=== PATIENT | female | born 2000 | race Caucasian/White ===

== ENCOUNTER 2023-01-05 15:28 | Emergency (ER) | payer BC, SELFPAY ==
[2023-01-05 15:40] VITALS: BP 143/83; PULSE 75; RESP 16; TEMP 36.9; O2SAT 98; BMI 22.6
[2023-01-05 15:58] LABS: Appearance Urine Slightly Cloudy (Clear); Bilirubin Urine Negative (Negative); Blood Urine Negative (Negative); Color Urine Yellow (Yellow); Glucose Urine Negative (Negative); Ketones Urine Negative (Negative); Leukocyte Esterase Urine Trace (Negative); Nitrite Urine Negative (Negative); Protein Urine Negative (Negative); Specific Gravity Urine 1.025 (1.000-1.030); Urobilinogen Urine 0.2 (0.2-1.0)
--- NOTE | 2023-01-05 16:01 | ED_ITS ---
HPI - General Adult General Time Seen by Provider: 16:48 Date Seen: 01/05/23 Chief complaint: Back Injury/Pain Stated complaint: Sharp lower back, side and abdominal pain-R sided Time Seen by Provider: 01/05/23 15:49 Source: patient and RN notes reviewed Mode of arrival: ambulatory Limitations: no limitations History of Present Illness HPI narrative: This 22-year-old female is coming in with low back pain that has morphed into right sided lower abdominal pain. Symptoms started around 11:00 a.m. yesterday. She had a busy day and was at the [employer]. She took some Midol and heating pad last night and this morning again, did not help. She has had a history of ovarian cysts, became tearful talking about this as she states they tried to poke her 12 times with an IV. She will taken injectable pain medicine but really does not want an IV, is okay if we attempt to get blood. She is on a triphasic oral contraceptive, has not missed any doses. She notes no urinary symptoms, no change in bowel habits. She did feel little nausea when the pain was severe last night, otherwise no vomiting. She has had no abdominal surgeries. Related Data Allergies Allergy/AdvReac Type Severity Reaction Status Date / Time amoxicillin Allergy Severe Rash Verified 01/05/23 15:44 Review of Systems Status of ROS: Reports: 6 or more systems reviewed and unremarkable except as noted in History and below Exam Const: Vital Signs, click to edit/add: Vital Signs - 24 hr 01/05/23 15:40 Temperature 98.5 F Pulse Rate [Right Pulse Oximeter] 75 Respiratory Rate 16 Blood Pressure [Ri ght Upper Arm] 143/83 H Pulse Oximetry 98 Oxygen Delivery Me thod Room Air 22-year-old female is alert interactive no apparent distress, did become tearful when talking about the prior trauma with the IV starts. She is certainly consolable. Pupils are equal round, sclera clear. Neck is supple, no cervical adenopathy or masses. Lungs are clear good air entry. Speech is normal. CV regular rate and rhythm no murmur. Abdomen is soft, flat, no masses. She does have some right mid to lower abdominal tenderness without rebound or guarding at this time, do not feel any mass. Pelvic exam is deferred at this point. Did discuss imaging, she would like to have this 1st. Documenting provider has reviewed patient's vital signs: yes Course Course Hospital Course: 22-year-old female with lower back pain that has morphed into right lower quadrant abdominal pain. She understands that certainly ovarian cyst could be in the differential, other potential etiologies of other intra-abdominal pathology are considerations as well. We did specifically talk about appendicitis. We will start with pelvic ultrasound, if we need to do a CT she understands we will need to try to find IV access. Going to give her some Toradol IM, oral Zofran for nausea. Will get appropriate labs, urinalysis has been collected in looks like there is contamination but no evidence of infection or significant hematuria. Reevaluation(s) Time of Reevaluation #1: 19:04 Reevaluation #1: Reviewed with patient that unfortunately the preliminary report from the director of staff development is that the ovaries looked normal. She did attempt to see the appendix and could not. Reviewed normal lab findings with the exception of an elevated C reactive protein of 4.8. I do think we need to proceed with CT imaging to ensure we are not missing an appendicitis or other pertinent etiologies. She understands and is agreeable to this, understands we will need to place an IV. Time of Reevaluation #2: 21:22 Reevaluation #2: Reviewed with patient and her mom that the CT showing no evidence of any acute intra-abdominal pathology. Outside of the C reactive protein being elevated at 4.8, labs are reassuring. There was nothing on the pelvic ultrasound either to identify any abdominal pathology. She in I reviewed that thankfully there is no surgical abdomen. Does not mean she is not having pain. She continues to have symptoms, does need to follow-up. I think next steps would be to consider further testing, possibly even something like colonoscopy. It is lower abdomen and right lower quadrant, doubt that this would be any presentation of gallb ladder. The Toradol did help somewhat, will send her with prescription for this. She can supplement with Tylenol. Will provide her note to be off work. Vital Signs Vital signs: Initial Vital Signs Temperature 98.5 F 01/05/23 15:40 Temperature Source Temporal Artery Scan 01/05/23 15:40 Pulse Rate 75 01/05/23 15:40 Pulse Rhythm Regular 01/05/23 15:40 Pulse Strength 3+ Normal 01/05/23 15:40 Respiratory Rate 16 01/05/23 15:40 Blood Pressure 143/83 H 01/05/23 15:40 Blood Pressure Mean 103 01/05/23 15:40 Blood Pressure Position Sitting 01/05/23 15:40 Pulse Oximetry 98 01/05/23 15:40 Oxygen Delivery Method Room Air 01/05/23 15:40 Vital Signs Temperature 98.5 F 01/05/23 15:40 Pulse Rate 75 01/05/23 15:40 Respiratory Rate 16 01/05/23 15:40 Blood Pressure 143/83 H 01/05/23 15:40 Pulse Oximetry 98 01/05/23 15:40 Oxygen Delivery Method Room Air 01/05/23 15:40 Temperature 98.5 F 01/05/23 15:40 Pulse Rate 75 01/05/23 15:40 Respiratory Rate 16 01/05/23 15:40 Blood Pressure 143/83 H 01/05/23 15:40 Pulse Oximetry 98 01/05/23 15:40 Oxygen Delivery Method Room Air 01/05/23 15:40 Medical Decision Making Lab Data Lab results reviewed: Yes I reviewed the patient's lab results Labs: Lab Results 01/05/23 01/05/23 01/05/23 Range/Units 15:45 17:13 17:25 WBC 5.37 (4.50-11.00) K/uL RBC 4.58 (4.00-5.20) m/uL Hgb 12.6 (12.0-16.0) gm/dL Hct 38.5 (33.0-51.0) % MCV 84 (80-100) fL MCH 28 (26-34) pg MCHC 33 (32-36) gm/dL RDW Coeff of Chris 13.8 (11.5-15.5) % Plt Count 268 (140-440) K/uL Neut % (Auto) 59.6 (42.0-72.0) % Lymph % (Auto) 27.0 (20-44) % [place] % (Auto) 11.0 (0.0-11.0) % Eos % (Auto) 1.7 (0.0-7.0) % Baso % (Auto) 0.7 (0.0-3.0) % Neut # (Auto) 3.20 (1.7-7.0) K/uL Lymph # (Auto) 1.45 (0.90-2.90) K/uL [place] # (Auto) 0.60 (0.00-0.90) K/UL Eos # (Auto) 0.09 (0.00-0.50) K/uL Baso # (Auto) 0.04 (0.00-0.30) K/uL Abs Immat Gran (auto) 0.00 (0.00-0.30) K/uL Imm/Tot Granulo (auto) 0.0 % Sodium 137 (135-149) mmol/L Potassium 3.9 (3.6-5.1) mmol/L Chloride 106 (96-114) mmol/L Carbon Dioxide 24 (20-32) mmol/L Anion Gap 7 (7-15) mEq/L BUN 11 (5-24) mg/dL Creatinine 0.7 (0.5-1.5) mg/dL Estimated Creat Clear 120.01 Estimated GFR 127 ml/min Glucose 90 (60-115) mg/dL Lactate 0.7 (0.5-1.9) mmol/L Calcium 8.7 (8.4-10.6) mg/dL Total Bilirubin 0.3 (0.1-1.5) mg/dL AST 24 (12-35) U/L ALT 16 (4-35) U/L Alkaline Phosphatase 61 (40-150) U/L C-Reactive Protein 4.2 H (0.5-1.0) mg/dL Total Protein 7.1 (6.0-8.3) g/dL Albumin 3.9 (3.3-5.0) g/dL Urine Color Yellow (Yellow) Urine Appearance Slightly Cloudy A (Clear) Urine pH 7.0 (5.0-8.5) Ur Specific [place] 1.025 (1.000-1.030) Urine Protein Negative (Negative) Urine Glucose (UA) Negative (Negative) Urine Ketones Negative (Negative) Urine Blood Negative (Negative) Urine Nitrite Negative (Negative) Urine Bilirubin Negative (Negative) Urine Urobilinogen 0.2 (0.2-1.0) Ur Leukocyte Esterase Trace A (Negative) Urine RBC 0-2 (0-2) Urine WBC 2-5 (0-5) Ur Squamous Epith Cells Moderate A (None-Few) Urine Bacteria Moderate A (None) Urine HCG, Qual Negative (Negative) Imaging Data US pelvis: Attestation: I have reviewed the pertinent imaging results. Radiologist's impression: Patient: [facility] Facility:?[facility] Patient ID:?[id number] Site Patient ID:?[id number]. Site :?[id number] Study:?US Pelvis PELVIS TV-01/05/2023 7:06:35 PM Ordering Physician:?Chan Mandujano Final Report: INDICATION: Pelvic pain, right. TECHNIQUE: Ultrasound pelvis transvaginal for better assessment or to better visualize the endometrium. Real-time sonographic images with spectral and color Doppler imaging of the ovaries were obtained. COMPARISON: None. FINDINGS: Uterus measures 8.5 x 3.1 x 4.3 cm and is homogeneous in echotexture. Endometrial stripe measures 3 mm. No evidence of endometrial fluid. Right ovary measures 3.4 x 1.9 x 2.5 cm and is within normal limits. Normal appearing color Doppler flow in the right ovary. Left ovary measures 3.4 x 1.7 x 2.7 cm and is within normal limits. Normal appearing color Doppler flow in the left ovary. Bilateral adnexal regions as imaged are unremarkable. Trace pelvic free fluid. IMPRESSION: Unremarkable pelvic ultrasound. Trace pelvic free fluid is likely physiologic in nature. Dictated by Neel Cespedes MD @ 01/05/2023 7:33:06 PM Dictated by: Neel Cespedes MD @ 01/05/2023 19:33:23 (Electronic Signature) CT scan - abdomen: Attestation: I have reviewed the pertinent imaging results. Radiologist's impression: Patient: [facility] Facility:?[facility] Patient ID:?[id number] Site Patient ID:?[id number]. Site :?2002 Study:?CT Abdomen/Pelvis WITH 69ml [id number] contrast-01/05/2023 7:49:07 PM Ordering Physician:Pepper Mandujano Final Report: INDICATION: Right-sided abdominal pain. TECHNIQUE: CT abdomen and pelvis acquired with 69 cc Isovue 370 IV contrast. COMPARISON: None. FINDINGS: Lower chest: Unremarkable. Liver: Unremarkable. Normal in size and attenuation. No suspicious masses. Gallbladder and bile ducts: Unremarkable. No stones or inflammation. No biliary dilatation. Pancreas: Unremarkable. No mass or inflammation. Spleen: Unremarkable. Normal in size. No masses. Adrenal glands: Unremarkable. No nodules. Kidneys: Unremarkable. No suspicious masses, stones, or hydronephrosis. GI tract: Mild colonic stool burden.. Normal in caliber. No sign of mass or inflammation. Normal appendix. Vasculature: Abdominal aorta is normal in caliber. Mesenteric arteries are patent. Lymph nodes: No lymphadenopathy. Peritoneum/Abdominal Wall: Unremarkable. No sign of mass or infiltration. No free air or significant free fluid. Pelvis: Trace free fluid, likely physiologic. Bones: Unremarkable for age. IMPRESSION: No acute intra-abdominal/pelvic abnormality including obstructive uropathy or appendicitis as questioned. Trace free fluid in the pelvis likely physiologic. Please note that all CT scans at this facility use dose modulation, iterative reconstruction, and/or weight-based dosing when appropriate to reduce radiation dose to as low as reasonably achievable. Dictated by Vasu Chang MD @ 01/05/2023 8:43:05 PM (Electronic Signature) Discharge Plan Discharge Clinical Impression: Right lower quadrant abdominal pain of unknown etiology Patient Disposition: Home, Self-Care Condition: Stable Instructions: Acute Abdominal Pain (ED) Additional Instructions: Recommend rest, use Toradol per prescription instructions. Supplement with Tylenol 1000 mg 3 times a day. Follow up in clinic within the next 24-48 hours for recheck. May need further testing and evaluation based on your clinical exam. If you develop increasing abdominal pain, fever vomiting with it, the certainly any are symptoms we would want to re-evaluate here. Activity Level: Activity as Tolerated Discharge Diet: Regular Follow Up/Referrals: Penny Nelson CNP [Primary Care Provider] - Stand Alone Forms: Night Up Info Instructions
[2023-01-05 16:10] LABS: Bacteria Urine Moderate; RBC Urine 0-2 (0-2); Squamous Epithelial Cell Urine Moderate (None-Few)
[2023-01-05] MEDS: KETOROLAC 30 MG/ML inj IM (17:30)
[2023-01-05] MEDS: ONDANSETRON ODT 4 MG TAB PO (17:30)
[2023-01-05 17:34] LABS: Ur HCG Qualitative* Negative (Negative)
[2023-01-05 17:34] LABS: Lactate* 0.7 mmol/L (0.5-1.9)
[2023-01-05 17:48] LABS: Basophils Absolute Auto 0.04 K/uL (0.00-0.30); Basophils Percent Auto 0.7 % (0.0-3.0); Chloride* 106 mmol/L (96-114); Eosinophils Absolute Auto 0.09 K/uL (0.00-0.50); Eosinophils Percent Auto 1.7 % (0.0-7.0); Hematocrit 38.5 % (33.0-51.0); Hemoglobin* 12.6 gm/dL (12.0-16.0); Lymphocytes Absolute Auto 1.45 K/uL (0.90-2.90); Mean Corpuscular HGB Conc 33 gm/dL (32-36); Mean Corpuscular Hemoglobin 28 pg (26-34); Mean Corpuscular Volume 84 fL (80-100); Neutrophils Percent Auto 59.6 % (42.0-72.0); Platelet Count* 268 K/uL (140-440); RDW Coefficient of Variation % 13.8 % (11.5-15.5); Red Blood Count 4.58 m/uL (4.00-5.20); White Blood Count* 5.37 K/uL (4.50-11.00)
[2023-01-05 17:49] LABS: Albumin* 3.9 g/dL (3.3-5.0); Potassium* 3.9 mmol/L (3.6-5.1); Sodium* 137 mmol/L (135-149)
[2023-01-05 17:51] LABS: Creatinine* 0.7 mg/dL (0.5-1.5); Est. Creatinine Clearance* 120.01; Estimated Glomerular Filt Rate 127 ml/min
[2023-01-05 17:52] LABS: Alanine Aminotransferase* 16 U/L (4-35); Alkaline Phosphatase* 61 U/L (40-150); Anion Gap 7 mEq/L (7-15); Aspartate Amino Transferase* 24 U/L (12-35); Bilirubin Total* 0.3 mg/dL (0.1-1.5); Blood Urea Nitrogen* 11 mg/dL (5-24); Calcium* 8.7 mg/dL (8.4-10.6); Carbon Dioxide* 24 mmol/L (20-32); Glucose* 90 mg/dL (60-115); Total Protein* 7.1 g/dL (6.0-8.3)
[2023-01-05 17:55] LABS: C Reactive Protein* 4.2 mg/dL (0.5-1.0)
[2023-01-05 17:57] LABS: Slide Review Reflex No
--- NOTE | 2023-01-05 18:07 | CRLHL7_ITS ---
For Patients: As a result of the Century Cures Act, medical imaging exams and procedure reports are released immediately into your electronic medical record. You may view this report before your referring provider. If you have questions, please contact your health care provider. INDICATION: Pelvic pain, right. TECHNIQUE: Ultrasound pelvis transvaginal for better assessment or to better visualize the endometrium. Real-time sonographic images with spectral and color Doppler imaging of the ovaries were obtained. COMPARISON: None. FINDINGS: Uterus measures 8.5 x 3.1 x 4.3 cm and is homogeneous in echotexture. Endometrial stripe measures 3 mm. No evidence of endometrial fluid. Right ovary measures 3.4 x 1.9 x 2.5 cm and is within normal limits. Normal appearing color Doppler flow in the right ovary. Left ovary measures 3.4 x 1.7 x 2.7 cm and is within normal limits. Normal appearing color Doppler flow in the left ovary. Bilateral adnexal regions as imaged are unremarkable. Trace pelvic free fluid. IMPRESSION: Unremarkable pelvic ultrasound. Trace pelvic free fluid is likely physiologic in nature. Dictated by Neel Cespedes MD @ 01/05/2023 7:33:06 PM Dictated by: Neel Cespedes MD @ 01/05/2023 19:33:23 (Electronically Signed)
--- NOTE | 2023-01-05 18:58 | CRLHL7_ITS ---
For Patients: As a result of the Century Cures Act, medical imaging exams and procedure reports are released immediately into your electronic medical record. You may view this report before your referring provider. If you have questions, please contact your health care provider. INDICATION: Right-sided abdominal pain. TECHNIQUE: CT abdomen and pelvis acquired with 69 cc Isovue 370 IV contrast. COMPARISON: None. FINDINGS: Lower chest: Unremarkable. Liver: Unremarkable. Normal in size and attenuation. No suspicious masses. Gallbladder and bile ducts: Unremarkable. No stones or inflammation. No biliary dilatation. Pancreas: Unremarkable. No mass or inflammation. Spleen: Unremarkable. Normal in size. No masses. Adrenal glands: Unremarkable. No nodules. Kidneys: Unremarkable. No suspicious masses, stones, or hydronephrosis. GI tract: Mild colonic stool burden.. Normal in caliber. No sign of mass or inflammation. Normal appendix. Vasculature: Abdominal aorta is normal in caliber. Mesenteric arteries are patent. Lymph nodes: No lymphadenopathy. Peritoneum/Abdominal Wall: Unremarkable. No sign of mass or infiltration. No free air or significant free fluid. Pelvis: Trace free fluid, likely physiologic. Bones: Unremarkable for age. IMPRESSION: No acute intra-abdominal/pelvic abnormality including obstructive uropathy or appendicitis as questioned. Trace free fluid in the pelvis likely physiologic. Please note that all CT scans at this facility use dose modulation, iterative reconstruction, and/or weight-based dosing when appropriate to reduce radiation dose to as low as reasonably achievable. Dictated by Vasu Chang MD @ 01/05/2023 8:43:05 PM (Electronically Signed)
== END 2023-01-05 21:43 | disposition home or self-care (01) ==
PROVIDERS: Emergency Provider Family Medicine; PCP Nurse Practitioner Family
DX: R10.31 Right lower quadrant pain (principal)
CPT/HCPCS: 36415; 74177; 76830; 80053; 81003; 81015; 81025; 83605; 85025; 86140; 87086; 93976; 96372; 99284; 99285; A9270; J1885; Q9967